=== PATIENT | female | born 1970 | race Caucasian/White ===

== ENCOUNTER → 2017-10-18 11:57 | Outpatient (CLI) | payer OTHER, SELFPAY ==
--- NOTE | 2017-10-18 12:05 | BI_ITS ---
MAMMOGRAPHY - BILATERAL SCREENING REASON FOR EXAM: Female, 47 years old. Routine annual screening examination. PERTINENT HISTORY: Personal history of breast cancer. Mother with breast cancer. Grandmother with breast cancer. Prior left lumpectomy and radiation therapy. TECHNIQUE: Digital bilateral breast josué (3D mammographic acquisition) in the CC and MLO projections. 2-D mediolateral oblique (MLO) and craniocaudad (CC) views of both breasts were obtained. CAD: Full Field Digital Mammography with Computer Added Detection was performed. COMPARISON: Comparison is made with prior examination dated October 06, 2016 and October 02, 2015. FINDINGS: Breast Composition: There are scattered areas of fibroglandular density. There are no dominant masses or suspicious calcifications. Once again, there is architectural distortion in the upper deep midportion of the left breast in keeping with prior lumpectomy and radiation. This is unchanged. Skin thickening. No other significant abnormalities are identified. There has been no significant change since the prior study. BI/SCREENING MAMM (CAD), BILAT IMPRESSION: Stable bilateral screening mammogram. Yearly follow-up mammogram recommended. (A) ASSESSMENT CATEGORY: BIRADS Category 2: Benign. A letter regarding these results will be sent to the patient by the facility within 30 days. Approximately 10% of breast cancers are not detected by mammography. A normal mammogram should not delay biopsy of a clinically suspicious abnormality. [id number] Electronically Signed: Dennis Garcia MD at 14:16 EDT Tel [phone], Service support ,
== END ==
PROVIDERS: Family Provider Family Medicine; PCP Family Medicine
DX: Z12.31 Encounter for screening mammogram for malignant neoplasm of breast (principal)
CPT/HCPCS: 77063; 77067

== ENCOUNTER → 2018-10-19 11:49 | Outpatient (CLI) | payer OTHER, SELFPAY ==
--- NOTE | 2018-10-19 11:56 | BI_ITS ---
MAMMOGRAPHY - BILATERAL SCREENING REASON FOR EXAM: Female, 48 years old. Routine annual screening examination. PERTINENT HISTORY: Personal history of breast cancer. Prior left lumpectomy and radiation. History of mother, grandmother and aunt with breast cancer. TECHNIQUE: Digital bilateral breast josué (3D mammographic acquisition) in the CC and MLO projections. 2-D mediolateral oblique (MLO) and craniocaudad (CC) views of both breasts were obtained. CAD: Full Field Digital Mammography with Computer Added Detection was performed. COMPARISON: Comparison is made with prior study dated October 18, 2017 and October 06, 2016. FINDINGS: Breast Composition: There are scattered areas of fibroglandular density. There are no dominant masses or suspicious calcifications. The patient is status post lumpectomy in the upper anterior aspect of the left breast with postoperative architectural distortion. This is unchanged. Stable small benign-appearing bilateral axillary lymph nodes. No other significant abnormalities are identified. There has been no significant change since the prior study. BI/SCREENING MAMM (CAD), BILAT IMPRESSION: Stable bilateral screening mammogram. Yearly follow-up mammogram recommended. (A) ASSESSMENT CATEGORY: BIRADS Category 2: Benign. A letter regarding these results will be sent to the patient by the facility within 30 days. Approximately 10% of breast cancers are not detected by mammography. A normal mammogram should not delay biopsy of a clinically suspicious abnormality. [id number] Electronically Signed: Dennis Garcia, at 13:47 EDT , Service support ,
== END ==
PROVIDERS: Family Provider Family Medicine; PCP Family Medicine
DX: Z12.31 Encounter for screening mammogram for malignant neoplasm of breast (principal)
CPT/HCPCS: 77063; 77067

== ENCOUNTER → 2019-10-21 11:56 | Outpatient (CLI) | payer OTHER, SELFPAY ==
--- NOTE | 2019-10-21 12:03 | BI_ITS ---
MAMMOGRAPHY - BILATERAL SCREENING REASON FOR EXAM: Female, 49 years old. Routine annual screening examination. PERTINENT HISTORY: Personal history of breast cancer. Prior left lumpectomy and radiation treatment. Mother with breast cancer. Grandmother with breast cancer. Aunt with breast cancer. TECHNIQUE: Digital bilateral breast ranjan (3D mammographic acquisition) in the CC and MLO projections. 2-D mediolateral oblique (MLO) and craniocaudad (CC) views of both breasts were obtained. CAD: Full Field Digital Mammography with Computer Added Detection was performed. COMPARISON: Comparison is made with prior study dated October 19, 2018 and October 18, 2017. FINDINGS: Breast Composition: The breasts are almost entirely fatty. There are no dominant masses or suspicious calcifications. The patient is status post lumpectomy in the anterior superior aspect of the left breast with postoperative architectural distortion. This is unchanged. Stable benign-appearing bilateral axillary lymph nodes. No other significant abnormalities are identified. There has been no significant change since the prior study. BI/SCREEN MAMM (CAD) W/RANJAN BILAT IMPRESSION: Stable bilateral screening mammogram. Yearly follow-up mammogram recommended. (A) ASSESSMENT CATEGORY: BIRADS Category 2: Benign. A letter regarding these results will be sent to the patient by the facility within 30 days. Approximately 10% of breast cancers are not detected by mammography. A normal mammogram should not delay biopsy of a clinically suspicious abnormality. [id number] Electronically Signed: Dennis Garcia, at 15:05 EDT , Service support ,
== END ==
PROVIDERS: Family Provider Family Medicine; PCP Family Medicine; Referring Provider Family Medicine; Visit Provider Family Medicine
DX: Z12.31 Encounter for screening mammogram for malignant neoplasm of breast (principal)
CPT/HCPCS: 77063; 77067

== ENCOUNTER → 2020-10-21 11:55 | Outpatient (CLI) | payer OTHER, SELFPAY ==
--- NOTE | 2020-10-21 11:58 | BI_ITS ---
MAMMOGRAPHY - BILATERAL SCREENING REASON FOR EXAM: Female, 50 years old. Routine annual screening examination. PERTINENT HISTORY: Personal history of breast cancer. Prior left lumpectomy with radiation. Aunt with breast cancer. TECHNIQUE: Digital bilateral breast ranjan (3D mammographic acquisition) in the CC and MLO projections. 2-D mediolateral oblique (MLO) and craniocaudad (CC) views of both breasts were obtained. CAD: Full Field Digital Mammography with Computer Added Detection was performed. COMPARISON: Comparison is made with prior examination dated 10/21/2019 and 10/19/2018. FINDINGS: Breast Composition: The breasts are almost entirely fatty. There are no dominant masses or suspicious calcifications. Stable architectural distortion with skin thickening in the anterior upper slightly lateral aspect of the left breast. Stable benign-appearing bilateral axillary lymph nodes. No other significant abnormalities are identified. There has been no significant change since the prior study. BI/SCRN MAMM (CAD)W/RANJAN BILAT IMPRESSION: Stable bilateral screening mammogram. Yearly follow-up mammogram recommended. (A) ASSESSMENT CATEGORY: BIRADS Category 2: Benign. A letter regarding these results will be sent to the patient by the facility within 30 days. Approximately 10% of breast cancers are not detected by mammography. A normal mammogram should not delay biopsy of a clinically suspicious abnormality. [id number] Electronically Signed: Dennis Garcia MD at 14:13 EDT , Service support ,
== END ==
PROVIDERS: PCP Family Medicine
DX: Z12.31 Encounter for screening mammogram for malignant neoplasm of breast (principal); Z85.3 Personal history of malignant neoplasm of breast; Z80.3 Family history of malignant neoplasm of breast
CPT/HCPCS: 77063; 77067

== ENCOUNTER 2021-10-22 12:11 | Outpatient (CLI) | payer OTHER, SELFPAY ==
--- NOTE | 2021-10-22 12:13 | BI_ITS ---
MAMMOGRAPHY - BILATERAL SCREENING REASON FOR EXAM: Female, 51 years old. Routine annual screening examination. PERTINENT HISTORY: Personal history of breast cancer. Prior left lumpectomy with radiation. Mother with breast cancer. Grandmother with breast cancer. Aunt with breast cancer. TECHNIQUE: Digital bilateral breast ranjan (3D mammographic acquisition) in the CC and MLO projections. 2-D mediolateral oblique (MLO) and craniocaudad (CC) views of both breasts were obtained. CAD: Full Field Digital Mammography with Computer Added Detection was performed. COMPARISON: Comparison is made with prior examination dated 10/21/2020 and 10/21/2019. FINDINGS: Breast Composition: The breasts are almost entirely fatty. There are no dominant masses or suspicious calcifications. Stable postoperative scarring in the deformity with overlying skin thickening in the anterior upper lateral aspect of the left breast. This is in keeping with prior lumpectomy. Stable benign appearing bilateral axillary lymph nodes. No other significant abnormalities are identified. There has been no significant change since the prior study. BI/SCRN MAMM (CAD)W/RANJAN BILAT IMPRESSION: Stable bilateral screening mammogram. Yearly follow-up mammogram recommended. (A) ASSESSMENT CATEGORY: BIRADS Category 2: Benign. A letter regarding these results will be sent to the patient by the facility within 30 days. Approximately 10% of breast cancers are not detected by mammography. A normal mammogram should not delay biopsy of a clinically suspicious abnormality. [id number] Electronically Signed: Dennis Garcia MD at 13:10 EDT ,
== END 2021-10-22 23:59 | disposition home or self-care (01) ==
LOC: OPBI 12:12
PROVIDERS: PCP Family Medicine; Visit Provider Nurse Practitioner
DX: Z12.31 Encounter for screening mammogram for malignant neoplasm of breast (principal); Z85.3 Personal history of malignant neoplasm of breast
CPT/HCPCS: 77063; 77067

== ENCOUNTER → 2022-06-28 | Outpatient (CLI) | payer OTHER, SELFPAY ==
[2022-06-28 10:26] LABS: Erythrocyte Sedimentation Rate 16 mm/hr (0-30)
[2022-06-28 10:28] LABS: Absolute Lymphocyte Count 0.98 X10^3/uL (0.83-4.51); Absolute Neutrophil Count 3.5 X10^3/uL (2.0-7.7); Basophil# 0.03 X10^3/uL; Basophil% 0.6 % (0-1); Eosinophil# 0.12 X10^3/uL; Eosinophils% 2.4 % (0-5); Hematocrit 42.1 % (37-47); Hemoglobin 13.4 g/dL (12.0-15.0); Lymphocyte # 0.98 X10^3/ul (0.83-4.51); Lymphocyte % 19.3 % (19-41); Mean Corp Hgb Conc 31.8 g/dL (32-36); Mean Corpuscular Hgb 28.8 pg (27.0-32.0); Mean Corpuscular Volume 90.3 fL (81-99); Mean Platelet Vol. 11.4 fl (6.2-12.0); Monocyte# 0.42 X10^3/uL; Monocyte% 8.3 % (0-10); NRBC Flagged by Analyzer 0 % (0-5); Neutrophil # 3.53 X10^3/uL (2.7-7.7); Neutrophil % 69.2 % (47-70); Platelet Count 265 K/mm3 (150-450); RBC Distribution Width CV 12.2 % (11.6-14.6); RBC Distribution Width SD 40.2 fl (35.1-43.9); Red Blood Count 4.66 M/mm3 (4.2-5.4); White Blood Count 5.1 K/mm3 (4.4-11.0)
[2022-06-28 11:00] LABS: Hemoglobin A1c 5.5 % (3.8-5.6)
[2022-06-28 11:20] LABS: ALB/GLOB Ratio 1.1 RATIO (0.9-2.4); AST(SGOT) 20 U/L (15-37); Alanine Aminotransfer ALT/SGPT 34 U/L (13-56); Albumin, Serum 3.5 g/dL (3.2-5.0); Alkaline Phosphatase 77 U/L (45-117); Anion Gap 7 (5-15); BUN 15 mg/dL (7-18); BUN/Creat Ratio 17.3 RATIO (10-20); CRP < 2.90 mg/L (0.0-3.0); Calcium,Total 9.3 mg/dL (8.5-10.1); Chloride 106 mmol/L (98-107); Cholesterol 184 mg/dL (200); Creatinine, Serum 0.87 mg/dL (0.55-1.02); EST Glomerular Filtration Rate 73 mL/min (>60); Est Glom Filt Rate - Afr Amer 88 mL/min (>60); Globulin 3.3 g/dL (2.2-4.2); Glucose 96 mg/dL (74-106); High Density Lipoprotein 60 mg/dL; LDH 190 U/L (84-246); Potassium 4.4 mmol/L (3.5-5.1); Protein, Total 6.8 g/dL (6.4-8.2); Sodium Level 142 mmol/L (136-145); Triglycerides 82 mg/dL; Very Low Density Lipoprotein 16 mg/dL (5-40)
[2022-06-29 14:08] LABS: Anti-Centromere B Ab <0.2 AI (0.0-0.9); Anti-Chromatin <0.2 AI (0.0-0.9); Anti-Jo <0.2 AI (0.0-0.9); Anti-Scleroderma-70 AB <0.2 AI (0.0-0.9); RNP Ab 0.5 AI (0.0-0.9); SJOGREN'S Anti-SS-A test < 0.2 AI (0.0-0.9); SJOGREN'S Anti-SS-B test < 0.2 AI (0.0-0.9); Smith Ab <0.2 AI (0.0-0.9)
[2022-06-29 15:08] LABS: Endomysial Antibody IgA Negative (Negative)
[2022-06-29 20:54] LABS: Immunoglobulin A 363 mg/dL (87-352); t-Transglutaminase IgA <2 U/mL (0-3)
[2022-06-29 20:57] LABS: Anti-Mitochondrial AB <20.0 Units (0.0-20.0); Anti-dsDNA Ab <1 IU/mL (0-9)
[2022-07-01 10:47] LABS: Calprotectin, Stool 150 ug/g (0-120); Fats, Neutral Normal (.); Fats, Total Increased (.)
[2022-07-02 20:46] LABS: Pancreatic Elastase, Fecal > 500 (>200)
[2022-07-02 22:06] LABS: Albumin 3.5 g/dL (2.9-4.4); Alpha-1-Globulins 0.2 g/dL (0.0-0.4); Alpha-2-Globulins 0.7 g/dL (0.4-1.0); Cytoplasmic Ab (C-ANCA) 1:20 titer (Neg:<1:20); Gamma Globulin 1.1 g/dL (0.4-1.8); HEPATITIS B SURFACE AG Negative (Negative); Hep C Antibodies 0.1 s/co ratio (0.0-0.9); Hepatitis A IgM Antibody Negative (Negative); Hepatitis B Core AB IgM Negative (Negative); Immunoglobulin A 348 mg/dL (87-352); Immunoglobulin G 965 mg/dL (586-1602); Immunoglobulin M 101 mg/dL (26-217); PROEL- TOTAL PROTEIN 6.6 g/dL (6.0-8.5)
[2022-07-03 09:41] LABS: Anti-Smooth Muscle ABS 9 Units (0-19)
[2022-07-03 09:42] LABS: Immunoglobulin E 39 IU/mL (6-495); Perinuclear Ab (P-ANCA) <1:20 titer (Neg:<1:20)
== END | disposition home or self-care (01) ==
LOC: MTLAB 12:24 → LABSPEC 12:25
PROVIDERS: PCP Family Medicine; Referring Provider Internal Medicine Gastroenterology; Visit Provider Internal Medicine Gastroenterology
DX: K50.912 Crohn's disease, unspecified, with intestinal obstruction (principal)
CPT/HCPCS: 36415; 80053; 80061; 80074; 82653; 82705; 82784; 82785; 83036; 83516; 83615; 83630; 83993; 84165; 85025; 85652; 86140; 86225; 86235; 86255; 86256; 86334; 87177; 87209; 87329; 87506

== ENCOUNTER → 2022-06-30 | Outpatient (CLI) | payer OTHER, SELFPAY ==
--- NOTE | 2022-06-30 06:56 | CT_ITS ---
STUDY: CT ABDOMEN AND PELVIS WITH CONTRAST REASON FOR EXAM: Female, 52 years old. Crohn disease -- Please give oral and IV contrast RADIATION DOSAGE (If Supplied By Facility): CTDIvol = ( 14.80 ) mGy, DLP = ( 854.32 ) mGycm TECHNIQUE: Transaxial images were obtained from the dome of the diaphragm to the symphysis pubis with oral contrast. Oral and amp;amp; IV Readi-CAT and amp;amp; 100mL Isovue-370 was administered. Sagittal and coronal images were reconstructed. Individualized dose optimization techniques were used for this CT. COMPARISON: Comparison is made with prior study dated 01/11/2016. FINDINGS: The visualized lung bases are unremarkable. The visualized portions of the heart are within normal limits. Normal liver. Normal gallbladder and extrahepatic biliary system. Normal spleen. Normal pancreas. Normal bilateral adrenal glands. Normal right kidney. Normal left kidney. There is a small hiatal hernia. There is a narrowing in mural thickening with increased markings in the surrounding peritoneal fat of the terminal ileum. This is suggestive of recurrent Crohn''s disease. Contrast is seen in the right hemicolon. No evidence of small bowel obstruction. Normal colon. The appendix is visualized and appears normal. Normal abdominal aorta. Normal inferior vena cava. Normal retroperitoneum. Normal urinary bladder. There is absence of the uterus consistent with a prior hysterectomy. Normal abdominal wall. Normal osseous structures. CT/Abdomen/Pelvis WITH Contrast IMPRESSION: Thickening with separation of loops in the inflammatory changes involving the terminal ileum suggestive of recurrent Crohn''s disease. Electronically Signed: Dennis Garcia MD at 11:23 EST ,
== END | disposition home or self-care (01) ==
LOC: CT 06:54
PROVIDERS: PCP Family Medicine; Referring Provider Internal Medicine Gastroenterology; Visit Provider Internal Medicine Gastroenterology
DX: K50.912 Crohn's disease, unspecified, with intestinal obstruction (principal)
CPT/HCPCS: 74177; Q9967

== ENCOUNTER → 2022-07-19 | Outpatient (CLI) | payer OTHER, SELFPAY ==
[2022-07-21 19:07] LABS: QNTFERON TB Mitogen Value > 10.00 IU/mL (.); QNTFERON TB Nil Value 0.06 IU/mL (.); QNTFERON TB1+ Ag Value 0.06 IU/mL (.); QNTFERON TB2+ Ag Value 0.11 IU/mL (.)
[2022-07-21 19:40] LABS: QNTIFERON TB Positive Criteria Negative (Negative)
== END | disposition home or self-care (01) ==
LOC: LAB 12:45
PROVIDERS: PCP Family Medicine; Visit Provider Internal Medicine Gastroenterology
DX: K50.912 Crohn's disease, unspecified, with intestinal obstruction (principal)
CPT/HCPCS: 36415; 86480

== ENCOUNTER 2022-08-23 12:44 | Day surgery (SDC) | payer OTHER, SELFPAY ==
[2022-08-23 13:13] VITALS: BP 109/72; PULSE 57; RESP 16; TEMP 36.8; O2SAT 99; BMI 28.2
[2022-08-23] MEDS: Lactated Ringers 1,000 ML 15 ML IV (13:21)
--- NOTE | 2022-08-23 14:00 | COLBX_PTH ---
PATIENT: AYESHA MALONEY LOC: EN U#:[id number] AGE/SX: 52/F ROOM: RE08/23/[address]: Dr. Sky Cuellar DO : 1970 BED: DIS: 08/23/2022 SPEC #: [id number] RECD: 08/23/22 15:45 STATUS: ADDIE REQ #: [id number] THEODORE: 08/23/22 14:[address]: Sky Cuellar DEPT: SURGICAL PATHOLOGY RECD BY: Deyanira Danielle ENTERED: 08/24/22 09:54 SP TYPE: COLON BX OTHR DR: Dr. Cecilio Winn MD Tissues: A - Cecum, NOS B - Cecum, NOS Procedures: Surgery Specimen Level IV HEADER OPERATION: Colonoscopy (MAC) with biopsies PRE-OP DIAGNOSIS: Acute Crohn?s disease with intestinal obstruction TISSUE SUBMITTED: A ? Cecal biopsy, B ? Ileocecal valve biopsy MICROSCOPIC DIAGNOSIS A. Cecal biopsy: A fragment of colonic mucosa with focal thickening of muscularis mucosa. Negative for active inflammation. See comment. B. Ileocecal valve, biopsy: A fragment of colonic mucosa with minimal glandular distortion. Negative for active inflammation. See comment. SAMMIE:tae 08/25/2022 COMMENT A & B. Correlation with clinical, endoscopic findings and appropriate follow up are necessary. MICROSCOPIC DESCRIPTION Slides are reviewed. GROSS DESCRIPTION A - Received in fixative is one container labeled with the patient's name and designated cecal biopsy. The specimen consists of one irregular fragment of light higuera soft tissue that measures 0.3 x 0.3 x 0.1 cm. The specimen is totally submitted in one cassette. B - Received in fixative is one container labeled with the patient's name and designated ileocecal valve biopsy. The specimen consists of one irregular fragment of light higuera soft tissue that measures 0.4 x 0.3 x 0.1 cm. The specimen is totally submitted in one cassette. / SAMMIE:tae 08/24/2022 TC:5 [facility]: [id number] x2
--- NOTE | 2022-08-23 14:04 | PCM.HP.BLA ---
History and Physical Date of Admission: 08/23/22 MOLLY MALONEY, is a 52 F who presents to the office today for initial consult. Molly established with this clinic 06.24.22 with referral from PCP. Crohn?s disease diagnosed 1999 with narrowing of TI with history SBO. Manages without medication with diet. H breast cancer, invasive ductal carcinoma [id number], s/p lumpectomy. ? [facility] hospitalization 7.16-7.16 with abdominal pain, nausea with a history of untreated Crohn?s disease finding partial SBO. Treated with NPO, IVF, IV corticosteroids and discharged with budesonide 9mg QD. CT abd/pel 7.16 RLQ pain and nausea finding dilation with air-fluid levels of small bowel consistent with SBO; pericecal/proximal to midascending colonic fatty stranding noted. ? Pt dx with Crohns in the . Was prevously treated with Pentasa around that time but had a hard time remembering to take pills. Has been managing sx with diet and a daily probiotic. Gets flair ups periodically with the last one being several months ago. Usually treated with ATB and steroids. In between flairs she is stable with no abdominal pain, nausea. Bowls are regular but tend to go back and forth from diarrhea or constipation. No FH of bowel disease. Last scope was greater than 10 years ago. ? ? ROS Const Constitutional: No fatigue ENT ENT: No difficulty swallowing Gastro GI: Positive for constipation and diarrhea; No abdominal pain, belching, bloating, change in bowel habits, change in stool character, coffee ground emesis, cramping, heartburn, difficulty swallowing, feeling full early, excessive flatus, incontinent of stools, Vomiting blood/hematemesis, Blood in stool, loose stools, Black,tarry stools, nausea/dyspepsia, pain with swallowing, vomiting or other Musc Musculoskeletal: No joint pain Skin Skin: No yellowing of the eye or itchy eyes Psych Psychiatric: No anxiety and No depression Endo Endocrine: No fatigue Aller/Imm Allergy/Immunologic: No itchy eyes Esequiel/Lymp Hematologic/Lymphatic: No easy bleeding or easy bruising Exam Const General: cooperative and comfortable Nutritional Appearance: average body habitus and well nourished [facility] Head: normal to inspection Ears: hearing grossly normal bilaterally Nose: external nose normal Face and sinus: normal facial exam Mouth: oral mucosae normal Throat: posterior oropharynx normal Eyes General: appearance normal, both eyes and all related structures Neck Neck: normal visual inspection Chest Chest palpation & inspection: normal inspection of the chest and normal palpation of entire chest wall Resp Effort & Inspection: normal respiratory effort Auscultation: Bilateral: Clear to Auscultation Cardio Palpation: normal PMI Rate: regular rate Rhythm: regular rhythm GI Inspection: normal to inspection Auscultation: normal bowel sounds Percussion: normal to percussion Palpation: no hepatosplenomegaly Skin General: no rashes or lesions noted Neuro General: patient alert Extrem General: normal to inspection Psych Affect: normal affect Quality Reporting Tobacco Screening ([facility] 138) Smoking Status: Never smoker Assessment and Plan Assessment and Plan (1) Acute Crohn's disease with intestinal obstruction: ?Status:?Acute ?Plan: I believe Crohn's disease at the terminal ileum into the colon from previous colonoscopies and imaging of abdomen and pelvis that was done back in 2016.? She needs to undergo repeat colonoscopy and she will likely need a capsule endoscopy to evaluate her small intestines.? Work-up in progress. ? ? ? Orders: Orders Comprehensive Metabolic Profil Today K50.912 - Crohn's disease, unspecified, with intestinal obstruction ? CRP Today K50.912 - Crohn's disease, unspecified, with intestinal obstruction ? LDH Today K50.912 - Crohn's disease, unspecified, with intestinal obstruction ? CBC W/Diff, Automated Today K50.912 - Crohn's disease, unspecified, with intestinal obstruction ? Erythrocyte Sed Rate Today K50.912 - Crohn's disease, unspecified, with intestinal obstruction ? Anti-Mitochondrial AB Today K50.912 - Crohn's disease, unspecified, with intestinal obstruction ? ANCA Today K50.912 - Crohn's disease, unspecified, with intestinal obstruction ? Anti-Smooth Muscle ABS Today K50.912 - Crohn's disease, unspecified, with intestinal obstruction ? Celiac Disease Profile Today K50.912 - Crohn's disease, unspecified, with intestinal obstruction ? Immunoglobulin A Today K50.912 - Crohn's disease, unspecified, with intestinal obstruction ? Immunoglobulin E Today K50.912 - Crohn's disease, unspecified, with intestinal obstruction ? Immunoglobulin G Today K50.912 - Crohn's disease, unspecified, with intestinal obstruction ? Immunoglobulin M Today K50. - Crohn's disease, unspecified, with intestinal obstruction ? Abdomen/Pelvis WITH Contrast Today K50.912 - Crohn's disease, unspecified, with intestinal obstruction ? ROSEMARY Comprehensive Panel Today K50. - Crohn's disease, unspecified, with intestinal obstruction ? Calprotectin, Stool Today K50.912 - Crohn's disease, unspecified, with intestinal obstruction ? Fecal Fat, Qualitative Today K50. - Crohn's disease, unspecified, with intestinal obstruction ? OVA+PARA w/Giardia EIA [id number] Today K50. - Crohn's disease, unspecified, with intestinal obstruction ? CDIFF (PCR) Today K50.2 - Crohn's disease, unspecified, with intestinal obstruction ? ENTERIC PATHOGEN PANEL STOOL Today K50.91 - Crohn's disease, unspecified, with intestinal obstruction, K58.9 - Irritable bowel syndrome without diarrhea ? Stool Lactoferrin/WBC Today K50.912 - Crohn's disease, unspecified, with intestinal obstruction, K58.9 - Irritable bowel syndrome without diarrhea ? Hepatitis Panel Acute Today K50. - Crohn's disease, unspecified, with intestinal obstruction ? JAMAAL + Protein Elect, Serum Today K50.2 - Crohn's disease, unspecified, with intestinal obstruction ? Pancreatic Elastase, Fecal Today K50.912 - Crohn's disease, unspecified, with intestinal obstruction ? Miscellaneous Lab Procedure Today K50.912 - Crohn's disease, unspecified, with intestinal obstruction ? I have examined the patient and the H&P has been reviewed. There are no clinical changes since date of exam.
[2022-08-23 15:10] VITALS: BP 109/72; BP 97/58; PULSE 69; RESP 16; TEMP 36.2; O2SAT 100
[2022-08-23 15:15] VITALS: BP 108/77; BP 109/72; PULSE 68; RESP 16; O2SAT 100
--- NOTE | 2022-08-23 15:16 | OP.COLON_ITS ---
Patient Name: Molly Apple Procedure Date: 08/23/2022 2:39 PM Date of : 1970 Age: 52 Procedure: Colonoscopy Indications: Suspected Crohn's disease of the small bowel and colon Providers: Sky Cuellar DO Referring MD: Sky Cuellar DO Medicines: Monitored Anesthesia Care Patient Profile: This is a 52 year old female. Refer to note in patient chart for documentation of history and physical. Last Colonoscopy: 10 years ago. Complications: No immediate complications. Procedure: Pre-Anesthesia Assessment: - Prior to the procedure, a History and Physical was performed, and patient medications and allergies were reviewed. The patient is competent. The risks and benefits of the procedure and the sedation options and risks were discussed with the patient. All questions were answered and informed consent was obtained. Patient identification and proposed procedure were verified by the physician in the pre-procedure area. Mental Status Examination: alert and oriented. Airway Examination: normal oropharyngeal airway and neck mobility. Respiratory Examination: clear to auscultation. CV Examination: normal. Prophylactic Antibiotics: The patient does not require prophylactic antibiotics. Prior Anticoagulants: The patient has taken no previous anticoagulant or antiplatelet agents. ASA Grade Assessment: II - A patient with mild systemic disease. After reviewing the risks and benefits, the patient was deemed in satisfactory condition to undergo the procedure. The anesthesia plan was to use monitored anesthesia care (MAC). Immediately prior to administration of medications, the patient was re-assessed for adequacy to receive sedatives. The heart rate, respiratory rate, oxygen saturations, blood pressure, adequacy of pulmonary ventilation, and response to care were monitored throughout the procedure. The physical status of the patient was re-assessed after the procedure. After I obtained informed consent, the scope was passed under direct vision. Throughout the procedure, the patient's blood pressure, pulse, and oxygen saturations were monitored continuously. The colonoscope was introduced through the anus and advanced to the cecum, identified by appendiceal orifice and ileocecal valve. Scope In: 2:47:25 PM Scope Withdrawal Time 0 hours 7 minutes 31 seconds Scope Out: 3:04:39 PM Total Procedure Duration Time 0 hours 17 minutes 14 seconds Findings: The perianal and digital rectal examinations were normal. The Simple Endoscopic Score for Crohn's Disease was determined based on the endoscopic appearance of the mucosa in the following segments: - Ileum: Findings include ulcers greater than 2 cm in size, greater than 30% ulcerated surfaces, greater than 75% of surfaces affected and narrowing(s) that cannot be passed. Segment score: 12. - Right Colon: Findings include no ulcers present, less than 50% of surfaces affected and a single narrowing that can be passed. Segment score: 2. - Transverse Colon: Findings include no ulcers present, no ulcerated surfaces, no affected surfaces and no narrowings. Segment score: 0. - Left Colon: Findings include no ulcers present, no ulcerated surfaces, no affected surfaces and no narrowings. Segment score: 0. - Rectum: Findings include no ulcers present, no ulcerated surfaces, no affected surfaces and no narrowings. Segment score: 0. - Total SES-CD aggregate score: 14. Biopsies were taken with a cold forceps for histology. Verification of patient identification for the specimen was done. Estimated blood loss was minimal. A benign-appearing, intrinsic severe stenosis was found at the ileocecal valve and was non-traversed. Biopsies were taken with a cold forceps for histology. Verification of patient identification for the specimen was done. Estimated blood loss was minimal. Impression: - Simple Endoscopic Score for Crohn's Disease: 14, mucosal inflammatory changes secondary to Crohn's disease, with ileitis and colitis. Biopsied. - Stricture at the ileocecal valve. Biopsied. Recommendation: - Discharge patient to home. - Resume previous diet. - Continue present medications. - Await pathology results. - Repeat colonoscopy in 1 year for surveillance. Procedure Code(s): --- Professional --- 17051, Colonoscopy, flexible; with biopsy, single or multiple CPT copyright 2017 [employer]. All rights reserved. The codes documented in this report are preliminary and upon tube bender review may be revised to meet current compliance requirements. Sky Cuellar DO 08/23/2022 3:15:52 PM This report has been signed electronically. Number of Addenda: 0 Note Initiated On: 08/23/2022 2:39 PM
--- NOTE | 2022-08-23 15:17 | OP.CCLET_ITS ---
08/23/2022 Cecilio Winn [address] [place] [address] Re : Colonoscopy procedure for Molly Apple Dear Dr. Winn This procedure was performed on Tuesday, August 23, 2022. My impressions and recommendations are as follows: Impressions : - Simple Endoscopic Score for Crohn's Disease: 14, mucosal inflammatory changes secondary to Crohn's disease, with ileitis and colitis. Biopsied. - Stricture at the ileocecal valve. Biopsied. Recommendations : - Discharge patient to home. - Resume previous diet. - Continue present medications. - Await pathology results. - Repeat colonoscopy in 1 year for surveillance. My findings are described in the full procedure note, which is enclosed. If I can be of further assistance, please feel free to contact me at . Sincerely, Sky Cuellar, 08/23/2022 3:15:52 PM This report has been signed electronically.
[2022-08-23 15:20] VITALS: BP 108/70; BP 109/72; PULSE 65; RESP 16; O2SAT 100
[2022-08-23 15:26] VITALS: BP 109/72; BP 110/71; PULSE 59; RESP 16; TEMP 36.8; O2SAT 100
[2022-08-23 15:44] VITALS: BP 109/72
== END 2022-08-23 16:05 | disposition home or self-care (01) ==
LOC: EN 12:45 → AC 12:46
PROVIDERS: PCP Family Medicine; Referring Provider Family Medicine; Visit Provider Internal Medicine Gastroenterology
PROC: 0DJD8ZZ Inspection of Lower Intestinal Tract, Via Natural or Artificial Opening Endoscopic (ICD-10-PCS; CPT 45378; principal; 2022-08-23 13:55)
DX: K50.812 Crohn's disease of both small and large intestine with intestinal obstruction (principal)
CPT/HCPCS: 45380; 88305; J7120

== ENCOUNTER → 2022-11-07 | Outpatient (CLI) | payer OTHER, SELFPAY ==
--- NOTE | 2022-11-07 12:00 | BI_ITS ---
MAMMOGRAPHY - BILATERAL SCREENING REASON FOR EXAM: Female, 52 years old. Routine annual screening examination. PERTINENT HISTORY: Personal history of breast cancer. Prior left lumpectomy with radiation treatment. Mother with breast cancer. Grandmother with breast cancer. Aunt with breast cancer. TECHNIQUE: Digital bilateral breast ranjan (3D mammographic acquisition) in the CC and MLO projections. 2-D mediolateral oblique (MLO) and craniocaudad (CC) views of both breasts were obtained. CAD: Full Field Digital Mammography with Computer Added Detection was performed. COMPARISON: Comparison is made with prior study October 22, 2021 and October 21, 2020. FINDINGS: Breast Composition: The breasts are almost entirely fatty. There are no dominant masses or suspicious calcifications. Stable small benign-appearing bilateral axillary lymph nodes. No other significant abnormalities are identified. There has been no significant change since the prior study. BI/SCRN MAMM (CAD)W/RANJAN BILAT IMPRESSION: Stable bilateral screening mammogram. Yearly follow-up mammogram recommended. (A) ASSESSMENT CATEGORY: BIRADS Category 2: Benign. A letter regarding these results will be sent to the patient by the facility within 30 days. Approximately 10% of breast cancers are not detected by mammography. A normal mammogram should not delay biopsy of a clinically suspicious abnormality. [id number] Electronically Signed: Dennis Garcia MD at 12:48 EDT ,
== END | disposition home or self-care (01) ==
LOC: OPBI 11:59
PROVIDERS: PCP Family Medicine; Referring Provider Nurse Practitioner; Visit Provider Nurse Practitioner
DX: Z12.31 Encounter for screening mammogram for malignant neoplasm of breast (principal); Z85.3 Personal history of malignant neoplasm of breast
CPT/HCPCS: 77063; 77067

== ENCOUNTER → 2022-12-02 | Outpatient (CLI) | payer OTHER, SELFPAY ==
--- NOTE | 2022-12-02 10:23 | MRI_ITS ---
ACR Level 3 findings have been noted. An addendum which confirms receipt of the report will follow. MR Enterography Abdomen/Pelvis WO/W Contrast 12/02/2022 11:32 AM COMPARISON: CT 06/30/2022 CLINICAL HISTORY: K50.912 - Crohn''s disease, unspecified, with intestinal obstru... TECHNIQUE: Following oral administration of enteric contrast and administration of glucagon, multiplanar T1 and T2 weighted images along with dynamic post-gadolinium images were obtained through the abdomen and pelvis. FINDINGS: GI Tract: There is circumferential wall thickening and mucosal hyperenhancement involving several loops of proximal small bowel. The terminal ileum demonstrates marked wall thickening and mucosal hyperenhancement with marked surrounding inflammatory changes. There is also a questionable fistulous connection between the terminal ileum and an adjacent loop of distal ileum. No obstruction. No drainable fluid collections. Liver: Unremarkable Gallbladder: Unremarkable Spleen: Unremarkable Pancreas: Unremarkable Adrenal Glands: Unremarkable Kidneys: Bilateral pelviectasis. No obstructing stone or mass seen. Vascular: Unremarkable Lymphadenopathy: Absent Ascites: Absent Bladder: Unremarkable Reproductive: Status post hysterectomy. Bones: No suspicious lesions MRI/Enterography Abd/Pel IMPRESSION: Findings consistent with acute flare of Crohn''s disease with marked inflammatory changes surrounding the terminal ileum and a questionable fistulous connection between the terminal ileum and an adjacent loop of distal ileum. The appendix is not visualized. Cannot rule out appendicitis, as there is a lot of inflammation in the right lower quadrant which could be obscuring the appendix. Bilateral pelviectasis with no obstructing stone or mass seen. Electronically Signed: Romeo Eden MD at 22:49 EDT ,
[2022-12-02 10:34] VITALS: BP 121/80; PULSE 68; RESP 14; O2SAT 100; BMI 28.3
[2022-12-02] MEDS: Glucagon 1 MG/ML Syringe IV (11:52)
[2022-12-02 12:11] VITALS: BP 124/82; PULSE 65; RESP 14; O2SAT 100
== END | disposition home or self-care (01) ==
PROVIDERS: PCP Family Medicine; Referring Provider Internal Medicine Gastroenterology; Visit Provider Internal Medicine Gastroenterology
DX: K50.912 Crohn's disease, unspecified, with intestinal obstruction (principal)
CPT/HCPCS: 74183; 96374; A9575; A4216; J1610

== ENCOUNTER → 2023-07-05 | Outpatient (CLI) | payer OTHER, SELFPAY ==
[2023-07-05 09:15] LABS: Erythrocyte Sedimentation Rate 4 mm/hr (0-30)
[2023-07-05 09:43] LABS: CRP < 2.90 mg/L (0.0-3.0)
== END | disposition home or self-care (01) ==
PROVIDERS: PCP Family Medicine; Referring Provider Internal Medicine Gastroenterology; Visit Provider Internal Medicine Gastroenterology
DX: K58.9 Irritable bowel syndrome, unspecified (principal)
CPT/HCPCS: 36415; 85652; 86140

== ENCOUNTER → 2023-11-09 | Outpatient (CLI) | payer OTHER, SELFPAY ==
--- NOTE | 2023-11-09 11:59 | BI_ITS ---
MAMMOGRAPHY - BILATERAL SCREENING REASON FOR EXAM: Female, 53 years old. Routine annual screening examination. PERTINENT HISTORY: Personal history of breast cancer. Prior left lumpectomy with radiation treatment. Mother with breast cancer. Grandmother with breast cancer. Aunt with breast cancer. TECHNIQUE: Digital bilateral breast ranjan (3D mammographic acquisition) in the CC and MLO projections. 2-D mediolateral oblique (MLO) and craniocaudad (CC) views of both breasts were obtained. CAD: Full Field Digital Mammography with Computer Added Detection was performed. COMPARISON: Comparison is made with prior study November 07, 2022 and October 22, 2021. FINDINGS: Breast Composition: There are scattered areas of fibroglandular density. There are no dominant masses or suspicious calcifications. The patient is status post lumpectomy in the upper anterior lateral aspect of the left breast with resultant breast deformity and skin thickening. Stable small benign-appearing bilateral axillary lymph nodes. No other significant abnormalities are identified. There has been no significant change since the prior study. BI/SCRN MAMM (CAD)W/RANJAN BILAT IMPRESSION: Stable bilateral screening mammogram. Yearly follow-up mammogram recommended. (A) ASSESSMENT CATEGORY: BIRADS Category 2: Benign. A letter regarding these results will be sent to the patient by the facility within 30 days. Approximately 10% of breast cancers are not detected by mammography. A normal mammogram should not delay biopsy of a clinically suspicious abnormality. [id number] Electronically Signed: Dennis Garcia MD at 13:14 EDT ,
== END | disposition home or self-care (01) ==
LOC: OPBI 11:58
PROVIDERS: PCP Family Medicine; Referring Provider Nurse Practitioner; Visit Provider Nurse Practitioner
DX: Z12.31 Encounter for screening mammogram for malignant neoplasm of breast (principal); Z85.3 Personal history of malignant neoplasm of breast; Z80.3 Family history of malignant neoplasm of breast
CPT/HCPCS: 77063; 77067

== ENCOUNTER → 2024-07-17 | Outpatient (CLI) | payer OTHER, SELFPAY ==
--- NOTE | 2024-07-17 09:53 | MRI_ITS ---
STUDY: MR ENTEROGRAPHY WITH CONTRAST REASON FOR EXAM: Female, 54 years old. Mixed irritable bowel syndrome TECHNIQUE: Multipulse sequence MRI performed with IV contrast according to standard MR enterography protocol following administration of oral contrast for maximal bowel distention. Images were obtained from the dome of the diaphragm to the symphysis pubis. IV 14ML CLARISCAN was administered intravenously. TECHNICAL QUALITY: Image Quality: Satisfactory Small Bowel Distension: Adequate. COMPARISON: None. FINDINGS: FINDINGS: Bowel: Bowel wall thickening: Moderate circumferential bowel wall thickening and fibrosis is present directly at the ileocolic junction in the distal ileum with moderate narrowing of the lumen of the bowel is well. The distal one third aspect of the ileum demonstrates mild wall thickening and surrounding chronic appearing fibrosis/post inflammatory stranding. A few adhesions (skip lesions) are present at the ileocolic junction with the more proximal curving distal one third ileal loop''s which is mildly dilated patulous consistent with prestenotic dilatation, see image 19/24 series 5 and image 13/36 series 15. Moderate postcontrast enhancement is present at the ileocolic junction in the affected portion of the distal one third ileum where there is wall thickening and fibrosis in the wall and in the pericolonic fat/mesentery. The remaining small bowel loops are normal. No demonstrated small bowel obstruction. No bowel masses are present. No demonstrated intussusception. Vascularity: Normal. Enhancement: Normal. Fistula: None. Abscess: None. Other Findings: The visualized lung bases are unremarkable. The visualized portions of the heart are within normal limits. Normal liver. Normal gallbladder and extrahepatic biliary system. Normal spleen. Normal pancreas. Normal bilateral adrenal glands. Normal right kidney. Normal left kidney. Normal visualized stomach. Normal colon. The appendix is visualized and appears normal. Normal abdominal aorta. Normal inferior vena cava. Normal retroperitoneum. Normal urinary bladder. There is absence of the uterus consistent with a prior hysterectomy. Normal abdominal wall. Normal osseous structures. MRI/Enterography Abd/Pel IMPRESSION: 1. Bowel wall thickening: Moderate circumferential bowel wall thickening and fibrosis is present directly at the ileocolic junction in the distal ileum with moderate narrowing of the lumen of the bowel is well. The distal one third aspect of the ileum demonstrates mild wall thickening and surrounding chronic appearing fibrosis/post inflammatory stranding. A few adhesions (skip lesions) are present at the ileocolic junction with the more proximal curving distal one third ileal loop''s which is mildly dilated patulous consistent with prestenotic dilatation, see image 19/24 series 5 and image 13/36 series 15. MR enterography References: Active bowel inflammation causes restricted diffusion on diffusion-weighted images which appears as bright signal. Electronically Signed: Paul Koch MD at 10:26 EST Reading Location ID and State: [facility] / [place] , Service support ,
[2024-07-17 10:47] VITALS: BP 133/91; PULSE 59; RESP 18; O2SAT 95; BMI 29.8
[2024-07-17] MEDS: Glucagon 1 MG/ML Syringe IV (11:50)
[2024-07-17] MEDS: 0.9% Saline Lock 10 ML Syringe IV (11:50)
[2024-07-17 12:05] LABS: Hemoglobin A1c 5.5 % (3.8-5.6)
[2024-07-17 12:07] VITALS: BP 132/93; PULSE 72; RESP 18; O2SAT 98
[2024-07-17 13:01] LABS: CRP < 2.90 mg/L (0.0-3.0)
[2024-07-17 13:57] LABS: Erythrocyte Sedimentation Rate 5 mm/hr (0-30)
[2024-07-19 19:06] LABS: QNTFERON TB Mitogen Value > 10.00 IU/mL (.); QNTFERON TB Nil Value 0.04 IU/mL (.); QNTFERON TB1+ Ag Value 0.04 IU/mL (.); QNTFERON TB2+ Ag Value 0.02 IU/mL (.); QNTIFERON TB Positive Criteria Negative (Negative)
== END | disposition home or self-care (01) ==
PROVIDERS: PCP Nurse Practitioner Family; Referring Provider Internal Medicine Gastroenterology; Visit Provider Internal Medicine Gastroenterology
DX: K50.813 Crohn's disease of both small and large intestine with fistula (principal); R73.03 Prediabetes
CPT/HCPCS: 74183; 83036; 85652; 86140; 86480; 96374; A9575; A4216; J1610

== ENCOUNTER → 2024-11-14 | Outpatient (CLI) | payer OTHER, SELFPAY ==
--- NOTE | 2024-11-14 12:05 | BI_ITS ---
EXAM: SCRN MAMM (CAD)W/RANJAN BILAT DATE: 11/14/2024 CLINICAL HISTORY: F, Age 54 y/o , SCREENING BREAST CANCER RISK ASSESSMENT: Not reported TECHNIQUE: Bilateral screening digital breast tomosynthesis with 2D and 3D images. Computer aided detection. COMPARISON: Prior exam(s) were compared FINDINGS: TISSUE DENSITY: The breast tissue is composed of scattered area of fibroglandular density. Bilateral Breast Mammographic Findings: No suspicious masses, calcifications or other abnormalities are identified. BI/SCRN MAMM (CAD)W/RANJAN BILAT IMPRESSION: OVERALL FINAL ASSESSMENT: BIRADS 1 NEGATIVE RECOMMENDATION: Routine annual follow-up in 1 Year A letter with findings and recommendations will be mailed to the patient. Reading Location: [id number]
== END | disposition home or self-care (01) ==
LOC: OPBI 12:05
PROVIDERS: PCP Nurse Practitioner Family; Referring Provider Nurse Practitioner; Visit Provider Nurse Practitioner
DX: Z12.31 Encounter for screening mammogram for malignant neoplasm of breast (principal)
CPT/HCPCS: 77063; 77067

== ENCOUNTER → 2025-06-26 | Outpatient (CLI) | payer OTHER, SELFPAY ==
--- NOTE | 2025-06-26 09:44 | MRI_ITS ---
PROCEDURE: ENTEROGRAPHY ABD/PEL, 06/26/2025 REASON FOR EXAM: K50.813 - CROHN'S DISEASE OF BOTH SMALL AND LARGE INTESTINE WI... TECHNIQUE: Multisequence multiplanar MRI of the abdomen and pelvis was performed with and without IV contrast. IV contrast: 17 mL Clariscan PO contrast: Information not provided COMPARISON: None FINDINGS: Variable overall mild motion limitation. Some sequences mild/moderately motion degraded. Note that the exam was optimized for evaluation of the bowel rather than the remaining abdominopelvic viscera. Dome of the RIGHT hepatic lobe excluded from the [id number] of axial sequences. Axial greater than coronal sequences exclude the inferior pelvis, including inferior portions of the rectosigmoid, the inferior bladder, the anal canal, perianal region, cervical cuff (noting provided history of hysterectomy), vagina, and bony pelvis. Margins of the field of view of most sequences degraded by artifact of uncertain etiology possible aliasing probably related to large field of view imaging. Liver: Grossly unremarkable. Spleen: Grossly unremarkable. Gallbladder: Grossly unremarkable. Pancreas: Grossly unremarkable. Adrenals: Grossly unremarkable. Kidneys: Fullness of the extrarenal pelvis bilaterally without subha caliectasis/hydronephrosis.. Bowel: No bowel dilatation. Fistulization involving adjacent distal and terminal ileal loops in the RIGHT lower quadrant with tethered apperance of the involved loops. Bowel loops in the region demonstrating pseudo sacculation and segmental areas of moderate T2 dark wall thickening to roughly 9 mm without significant mural stratification, however there is some associated restricted diffusion. There are areas of luminal narrowing along the involved loops possibly reflecting areas of stricture, however again no upstream bowel dilatation to confirm stricture or suggest obstruction. No significant adjacent mesenteric edema. Predominantly delayed enhancement suggested preponderance of fibrosis as opposed to hyperemia. There appears to be a possible tethering of more proximal small bowel loops cranially, without definite fistulization or other areas of definite involvement. No definite colonic inflammation, although evaluation is limited due to motion and suboptimal prep in some areas. Appendix not identified. Lymph nodes: Grossly unremarkable. Vasculature: Grossly unremarkable. Peritoneum: Grossly unremarkable. Bladder: Underdistended and suboptimally evaluated, partially imaged as above, grossly unremarkable. Reproductive Organs: Hysterectomy and reported oophorectomy with partially imaged operative bed as above; no gross abnormality. Bones: Grossly unremarkable. MRI/Enterography Abd/Pel IMPRESSION: 1. Findings compatible with provided history of Crohn's disease, including evid ence of fistulization between adjacent loops of distal/terminal ileum. The appearance favors a preponderance of chronic change s such as fibrosis/scarring over acute inflammation although a component of mild acute inflammation is difficult to en tirely exclude. No definite abscess. 2. Areas of luminal narrowing in the area of above involvement represent possib le areas of stricture, however there is no upstream bowel dilatation to confirm this or suggest obstruction. 3. Additional description as above. Reading Location: [id number]
[2025-06-26 10:50] VITALS: BP 121/94; PULSE 68; RESP 16; O2SAT 98
[2025-06-26 11:25] LABS: Hematocrit 45.0 % (37-47); Hemoglobin 14.7 g/dL (12.0-15.0); Immature Granulocytes Count 0.010 X10^3/uL (0.0-0.0); Mean Corp Hgb Conc 32.7 g/dL (32-36); Mean Corpuscular Volume 89.5 fL (81-99); Mean Platelet Vol. 11.8 fl (6.2-12.0); NRBC Flagged by Analyzer 0 % (0-5); Platelet Count 223 K/mm3 (150-450); RBC Distribution Width CV 12.9 % (11.6-14.6); RBC Distribution Width SD 41.8 fl (35.1-43.9); Red Blood Count 5.03 M/mm3 (4.2-5.4); White Blood Count 6.6 K/mm3 (4.4-11.0)
[2025-06-26] MEDS: Glucagon 1 MG/ML Syringe IV (12:16)
[2025-06-26 12:29] VITALS: BP 130/83; PULSE 73; RESP 16; O2SAT 98
[2025-06-26 12:31] LABS: AST(SGOT) 27 U/L (<=31); Alanine Aminotransfer ALT/SGPT 24 U/L (<=34); Albumin, Serum 4.5 g/dL (3.5-5.0); Alkaline Phosphatase 93 U/L (35-104); Anion Gap 13 (5-15); BUN 15 mg/dL (4-19); BUN/Creat Ratio 16.6 RATIO (10-20); Calcium,Total 9.6 mg/dL (7.6-11.0); Carbon Dioxide 23.9 mmol/L (21.0-32.0); Chloride 103 mmol/L (98-108); Globulin 3.3 g/dL (2.2-4.2); Glucose 77 mg/dL (70-99); Potassium 4.1 mmol/L (3.3-5.1)
[2025-06-26 12:48] LABS: CRP < 3.00 mg/L (0.0-3.0)
== END | disposition home or self-care (01) ==
PROVIDERS: PCP Family Medicine; Referring Provider Internal Medicine Gastroenterology; Visit Provider Internal Medicine Gastroenterology
DX: K50.813 Crohn's disease of both small and large intestine with fistula (principal)
CPT/HCPCS: 36415; 74183; 80053; 85025; 85652; 86140; A9575; A4216; J1610